=== PATIENT | female | born 1965 | race Hispanic/Latino ===

== ENCOUNTER 2016-10-27 07:51 | Day surgery (SDC) | payer OTHER ==
[~2016-10-27] VITALS: Ht 154.9 cm; Wt 83.1 kg
[~2016-10-27 07:51] MED LIST: 0.9% Sodium Chloride 1,000 ML IV SCH; NOMED; Sodium Chloride LOK Flush 10 mL Syringe IV PRN; fentaNYL-PF 50 mCg/mL 2 mL Inj IVPUSH PRN
[2016-10-27 08:44] VITALS: BP 142/81; PULSE 69; RESP 16; O2SAT 99
[2016-10-27] MEDS ORDERED: MULT1CAP33 PO (08:49)
[2016-10-27 09:22] VITALS: BP 110/74; PULSE 69; RESP 17; O2SAT 99
[2016-10-27 09:31] VITALS: BP 116/67; PULSE 61; RESP 17; O2SAT 100
--- NOTE | 2016-10-27 09:40 | ENDO ---
[address] [address] ENDOSCOPY PROCEDURE PATIENT: KASHIF LATHAM : 1965 MR#: [id number] ADMIT: 10/27/2016 JOB ID: [id number] DATE OF SERVICE: 10/27/2016 PROCEDURE PERFORMED: Colonoscopy. INDICATIONS: Patient with a history of diverticulitis of the colon. ASA CLASSIFICATION: The patient's ASA classification is I. MALLAMPATI SCORE: Mallampati score was 2. MEDICATIONS: 1. Versed 5.5 mg. 2. Fentanyl 100 mcg. INSTRUMENT USED: PCF-H190L. PREPARATION QUALITY: Good. PROCEDURE DETAILS: After informed consent was obtained with the aid of a glass sagger, the patient was brought back into the GI suite, where she was placed on oxygen via nasal cannula and monitored with continuous pulse oximeter, telemetry, and blood pressure monitoring. A time-out was performed. Then, she was placed in the left lateral decubitus position and medications were administered for sedation. Digital rectal exam was performed which was unremarkable. The colonoscope was then inserted into the rectum and advanced under direct visualization to the cecum, which was identified by the presence of the ileocecal valve and appendiceal orifice. Once the cecum was reached, the colonoscope was withdrawn back into the rectum, as the mucosa and lumen were examined. In the rectum, retroflexion was performed. Following retroflexion, remaining air in the rectum was suctioned, and procedure was completed. FINDINGS: 1. Scattered diverticula were seen throughout the sigmoid colon. 2. Small to moderate-sized internal hemorrhoids were noted as the colonoscope was withdrawn from the anal canal. IMPRESSION: 1. Sigmoid diverticulosis. 2. Internal hemorrhoids. RECOMMENDATIONS: 1. Fiber-rich diet. 2. Repeat colonoscopy in 10 years, sooner if symptoms should dictate. COMPLICATIONS: None. ESTIMATED BLOOD LOSS: Zero.
[2016-10-27 09:41] VITALS: BP 116/67; PULSE 67; RESP 17; O2SAT 100
== END 2016-10-27 23:59 | disposition home or self-care (01) ==
LOC: END 07:51
PROVIDERS: ATTEND Internal Medicine Gastroenterology
DX: K57.30 Diverticulosis of large intestine without perforation or abscess without bleeding (principal); K64.8 Other hemorrhoids; K59.00 Constipation, unspecified; I83.90 Asymptomatic varicose veins of unspecified lower extremity
CPT/HCPCS: 45378; J2250; J3010; J7030